=== PATIENT | female | born 1960 | race Caucasian/White ===

== ENCOUNTER 2017-07-16 00:10 | Inpatient (IN) | payer MEDICAID ==
[~2017-07-16] VITALS: Ht 165.1 cm; Wt 49.5 kg
[2017-07-16 00:48] LABS: BASOPHILS % (AUTO) 1.4 % (0.0-2.0); EOSINOPHILS % (AUTO) 0.8 % (1.0-6.0); HEMATOCRIT 39.7 % (36-46); HEMOGLOBIN 14.3 g/dL (12.0-16.0); LYMPHOCYTES # (AUTO) 1.8 K/uL (1.0-4.8); LYMPHOCYTES % (AUTO) 27.7 % (22.0-44.0); MEAN CORPUSCULAR HEMOGLOBIN 34.1 pg (26.0-34.0); MEAN CORPUSCULAR HGB CONC 36.1 G/dL (31.0-37.0); MEAN CORPUSCULAR VOLUME 95 fL (80-100); MONOCYTES # (AUTO) 0.7 K/uL (0.1-1.0); NEUTROPHILS # (AUTO) 3.9 K/uL (1.8-7.7); NEUTROPHILS % (AUTO) 60.1 % (40.0-70.0); PLATELET COUNT (AUTO) 213 K/uL (150-450); RED CELL DISTRIBUTION WIDTH 12.4 % (11.5-14.5)
[2017-07-16 00:57] LABS: ANION GAP 12 mmol/L (8-16); CALCIUM, TOTAL 9.3 mg/dL (8.8-10.5); CARBON DIOXIDE 26 mmol/L (22-29); CHLORIDE 100 mmol/L (98-107); CREATININE 0.62 mg/dL (0.60-1.30); GLOMERULAR FILTR. RATE CALC > 60 mL/min (>60); GLUCOSE,RANDOM 126 mg/dL (70-110); POTASSIUM 3.6 mmol/L (3.5-5.1); SODIUM SERUM 138 mmol/L (136-145); UREA NITROGEN, BLOOD 11 mg/dL (7-18)
[2017-07-16] MEDS ORDERED: HALOPERIDOL LACTATE 5 MG/ML VIAL IM ONE (01:00)
[2017-07-16] MEDS ORDERED: LORazepam 2 MG/ML VIAL IM ONE (01:00)
[2017-07-16 01:02] LABS: ALANINE AMINOTRANSFERASE 37 U/L (12-78); ALBUMIN 4.5 g/dL (3.4-5.0); ALKALINE PHOSPHATASE 96 U/L (46-116); ASPARTATE AMINOTRANSFERASE 28 U/L (15-37); TOTAL PROTEIN, SERUM 7.6 g/dL (6.4-8.2)
[2017-07-16] MEDS ORDERED: ZOLPIDEM TARTRATE 10 MG TABLET PO PRN (08:15)
[2017-07-16] MEDS ORDERED: HALOPERIDOL 5 MG TABLET PO PRN (08:15)
[2017-07-16] MEDS ORDERED: LORazepam 2 MG TABLET PO PRN (08:15)
[2017-07-16 08:55] LABS: CHOL/HDL RATIO 1.9 (3.9-5.7); FREE T4 (FREE THYROXINE) 1.02 ng/dL (0.76-1.46); THYROID STIMULATING HORMONE 6.4 uIU/mL (0.36-3.74)
[2017-07-16] MEDS ORDERED: ACETAMINOPHEN 325 MG TABLET PO PRN (19:00)
[2017-07-16] MEDS ORDERED: IBUPROFEN 400 MG TABLET PO PRN (19:00)
[2017-07-16] MEDS ORDERED: CloNIDine HCL 0.1 MG TABLET PO PRN (19:00)
[2017-07-16 20:49] VITALS: BP 129/74
[2017-07-16 20:51] LABS: AMPHET/METH SCREEN,URINE POSITIVE (NEGATIVE); BARBITURATE SCREEN, URINE NEGATIVE (NEGATIVE); BENZODIAZEPINES SCREEN,URINE NEGATIVE (NEGATIVE); CANNABINOID SCREEN,URINE POSITIVE (NEGATIVE); COCAINE SCREEN,URINE NEGATIVE (NEGATIVE); GLUCOSE, URINE (UA) NEGATIVE (NEGATIVE); KETONES,URINE TRACE mg/dL (NEGATIVE); LEUKOCYTE ESTERASE ,URINE MODERATE (NEGATIVE); METHADONE SCREEN, URINE NEGATIVE (NEGATIVE); NITRATE,URINE NEGATIVE (NEGATIVE); OCCULT BLOOD,URINE NEGATIVE (NEGATIVE); OPIATE SCREEN,URINE NEGATIVE (NEGATIVE); PH,URINE 5.5 (5.0-8.0); PROTEIN,URINE TRACE (NEGATIVE)
[2017-07-16 20:52] LABS: PHENCYCLIDINE SCREEN,URINE NEGATIVE (NEGATIVE)
[2017-07-16 20:57] LABS: APPEARANCE,URINE SLIGHTLY CLOUDY (CLEAR); BILIRUBIN,URINE PRELIM. POSITIVE (NEGATIVE)
[2017-07-16 20:58] LABS: BACTERIA,URINE Few /HPF (None Seen); RBC,URINE 0-2 /HPF (0-2); RENAL EPITHELIAL CELLS,URINE Rare /LPF (None Seen); SQUAMOUS EPITHELIAL CELL,UR Few /LPF (None Seen)
[2017-07-17 08:19] VITALS: BP 124/71
[2017-07-17] MEDS: SERTRALINE HCL 50 MG TABLET PO SCH (09:37)
[2017-07-17] MEDS: BENZTROPINE MESYLATE 0.5 MG TABLET PO SCH ×2 (09:38→16:17)
[2017-07-17] MEDS: HALOPERIDOL 5 MG TABLET PO SCH ×2 (09:38→16:17)
[2017-07-17] MEDS: CIPROFLOXACIN HCL 500 MG TABLET PO SCH ×2 (09:39→16:17)
[2017-07-17] MEDS: NICOTINE 14 MG/24 HOUR PATCH TD SCH (09:42)
[2017-07-17 19:32] VITALS: BP 131/75
[2017-07-18 09:09] VITALS: BP 138/69
[2017-07-18] MEDS: BENZTROPINE MESYLATE 0.5 MG TABLET PO SCH ×2 (11:49→17:30)
[2017-07-18] MEDS: HALOPERIDOL 5 MG TABLET PO SCH ×2 (11:49→17:30)
[2017-07-18] MEDS: NICOTINE 14 MG/24 HOUR PATCH TD SCH (11:49)
[2017-07-18] MEDS: SERTRALINE HCL 50 MG TABLET PO SCH (11:49)
[2017-07-18] MEDS: CIPROFLOXACIN HCL 500 MG TABLET PO SCH ×2 (11:49→17:29)
[2017-07-18 16:40] VITALS: BP 136/74
[2017-07-19] MEDS: NICOTINE 14 MG/24 HOUR PATCH TD SCH (08:38)
[2017-07-19] MEDS: BENZTROPINE MESYLATE 0.5 MG TABLET PO SCH ×2 (08:38→17:41)
[2017-07-19] MEDS: CIPROFLOXACIN HCL 500 MG TABLET PO SCH ×2 (08:38→17:41)
[2017-07-19] MEDS: SERTRALINE HCL 50 MG TABLET PO SCH (08:38)
[2017-07-19] MEDS: HALOPERIDOL 5 MG TABLET PO SCH ×2 (08:39→17:41)
[2017-07-19 09:37] VITALS: BP 136/74
[2017-07-19 16:55] VITALS: BP 124/74
[2017-07-20 08:00] VITALS: BP 123/69
[2017-07-20] MEDS: SERTRALINE HCL 50 MG TABLET PO SCH (09:45)
[2017-07-20] MEDS: BENZTROPINE MESYLATE 0.5 MG TABLET PO SCH ×2 (09:45→17:33)
[2017-07-20] MEDS: CIPROFLOXACIN HCL 500 MG TABLET PO SCH ×2 (09:45→17:33)
[2017-07-20] MEDS: NICOTINE 14 MG/24 HOUR PATCH TD SCH (09:45)
[2017-07-20] MEDS: HALOPERIDOL 5 MG TABLET PO SCH ×2 (09:45→17:33)
[2017-07-20 20:07] VITALS: BP 117/73
[2017-07-21 08:00] VITALS: BP 107/57
[2017-07-21] MEDS: CIPROFLOXACIN HCL 500 MG TABLET PO SCH ×2 (09:33→16:30)
[2017-07-21] MEDS: SERTRALINE HCL 50 MG TABLET PO SCH (09:33)
[2017-07-21] MEDS: HALOPERIDOL 5 MG TABLET PO SCH ×2 (09:33→16:30)
[2017-07-21] MEDS: BENZTROPINE MESYLATE 0.5 MG TABLET PO SCH ×2 (09:33→16:30)
[2017-07-21] MEDS: NICOTINE 14 MG/24 HOUR PATCH TD SCH (09:34)
[2017-07-21] MEDS ORDERED: BENZ0.5T6 PO (13:25)
[2017-07-21] MEDS ORDERED: SERT50TA12 PO (13:25)
[2017-07-21] MEDS ORDERED: HALO5 PO (13:25)
[2017-07-21] MEDS ORDERED: CIPR-278 PO (13:27)
== END 2017-07-21 18:00 | disposition home or self-care (01) | DRG 750 ==
LOC: EMS 00:12 → 3EI 16:03
PROVIDERS: ADMIT Psychiatry & Neurology Psychiatry; ATTEND Psychiatry & Neurology Psychiatry
DX: F25.1 Schizoaffective disorder, depressive type (principal); R45.851 Suicidal ideations; Z78.1 Physical restraint status; I10 Essential (primary) hypertension; E02 Subclinical iodine-deficiency hypothyroidism; F19.20 Other psychoactive substance dependence, uncomplicated; F41.9 Anxiety disorder, unspecified; J44.9 Chronic obstructive pulmonary disease, unspecified; N39.0 Urinary tract infection, site not specified; F10.10 Alcohol abuse, uncomplicated; F17.210 Nicotine dependence, cigarettes, uncomplicated; F12.90 Cannabis use, unspecified, uncomplicated; Z91.19 Patient's noncompliance with other medical treatment and regimen; Z59.0 Homelessness; Z88.0 Allergy status to penicillin; Z88.5 Allergy status to narcotic agent; Z85.820 Personal history of malignant melanoma of skin; Z71.41 Alcohol abuse counseling and surveillance of alcoholic; Z71.51 Drug abuse counseling and surveillance of drug abuser; Z91.5 Personal history of self-harm
CPT/HCPCS: 84439; 84443; 87086; 96372; 99285; G0480; J1630; J2060